=== PATIENT | male | born 1980 | race Caucasian/White ===

== ENCOUNTER 2023-12-20 12:38 | Outpatient (REF) | payer OTHER, SELFPAY ==
--- NOTE | ~2023-12-20 | XR_ITS ---
Examination: XR pre mri screening Indication: R/O RETAINED METAL TO EYE PRE MRI Comparison: No pertinent prior studies are currently available for comparison. Technique: 3 views of the orbits were obtained for pre-MRI screening. Findings: No radiopaque foreign bodies seen overlying the orbits. Visualized sinuses are well aerated and unremarkable. No acute bony abnormality. XR/XR pre mri screening Impression: No radiopaque foreign body seen overlying the orbits.
--- NOTE | ~2023-12-20 | MR_ITS ---
EXAMINATION: MR SHOULDER WITHOUT CONTRAST, LEFT CLINICAL INFORMATION: Pain. Patient reports dislocation 10 years prior. COMPARISON: None available. TECHNIQUE: MRI of the shoulder without contrast was performed on a high-field scanner. FINDINGS: ROTATOR CUFF: There is a small irregular focus of increased intrasubstance signal at the insertion of the conjoined portion of the supraspinatus and infraspinatus tendons compatible with a small intrasubstance partial tear. See coronal image 9 series 6 and sagittal image 4 series 3. This extends over approximately 4 mm transverse and 3 mm AP. No transverse defect or tendon retraction. The remaining portions of the tendons are normal. The respective muscles are normal. Teres minor: Normal. Subscapularis: This some minimal intrasubstance increased signal at the insertion of the tendon compatible with tendinosis or minimal intrasubstance partial tearing. See axial image 12 series 2. No transverse defect or tendon retraction. Muscle normal. BICEPS: Normal. CORACOACROMIAL ARCH: The undersurface of the acromion is curved with no subacromial spur. There is mild arthrosis of the acromioclavicular joint with subchondral cysts and small marginal osteophytes. BURSA: Normal. LABRUM/CAPSULE: Normal. GLENOHUMERAL JOINT/MARROW: There is focal cartilage heterogeneity along the inferior aspect of the glenoid. Humeral head cartilage normal. Overall minimal arthrosis. There is an oval-shaped low signal focus in the subscapularis recess just anterior to the base of the coracoid and adjacent to the anterior surface of the glenoid. This measures 5 x 3 x 7 mm. This has the appearance of a loose body. MR/MR shoulder LT wo con IMPRESSION: 1. Small intrasubstance partial tear at the insertion of the conjoined portion of the supraspinatus and infraspinatus tendons. 2. Minimal tendinosis or intrasubstance partial tearing at the insertion of the subscapularis. 3. Mild arthrosis of the acromioclavicular joint. 4. Minimal arthrosis of the glenohumeral joint. 5. Probable loose body in the medial aspect of the subscapularis recess.
== END 2023-12-20 12:39 | disposition home or self-care (01) ==
LOC: HO.MRI 12:38
PROVIDERS: Visit Provider Family Medicine
DX: M25.512 Pain in left shoulder (principal)
CPT/HCPCS: 73221

== ENCOUNTER 2024-02-01 08:35 | Outpatient (REF) | payer OTHER, SELFPAY ==
--- NOTE | ~2024-02-01 | XR_ITS ---
EXAMINATION: XR SHOULDER, LEFT CLINICAL INFORMATION: Pain left shoulder COMPARISON: MRI left shoulder November 2023 TECHNIQUE: AP external rotation, Grashey, scapular Y, and axillary views of the left shoulder. FINDINGS: There is mild arthrosis of the acromioclavicular joint unchanged. Glenohumeral joint normal. Surrounding bone and soft tissues unremarkable. XR/XR shoulder LT min 2V IMPRESSION: Mild arthrosis of the acromioclavicular joint.
== END 2024-02-01 08:36 | disposition home or self-care (01) ==
LOC: HO.HOSX 08:35
PROVIDERS: Visit Provider Orthopaedic Surgery
DX: M25.512 Pain in left shoulder (principal)
CPT/HCPCS: 73030

== ENCOUNTER 2024-02-01 08:45 | Outpatient (AMB) | payer OTHER, SELFPAY ==
--- NOTE | 2024-02-01 08:52 | MHC.OFFVIS ---
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 MRI done at [facility]. Hx of left shoulder dislocation while snowboarding roughly 10 years ago. Increased pain with above the head, strenuous pushing motions and behind the back ROM. Feels weakness in his shoulder, thinks PT made it worse, says it feels like it will dislocate after a work out or any strenuous activity. Denies numbness and tingling. Allergies No Known Allergies Allergy (Verified 02/01/24 09:49) HPI HPI [employer]EVELOP[employer] SPECIALIST left shoulder pain, no recent injuries/falls: Details: Kurt is a 43 year old right hand dominant male who presents today as a new patient with complaints of left shoulder pain. MRI done at [facility]. Hx of left shoulder dislocation while snowboarding roughly 10 years ago. Increased pain with above the head, strenuous pushing motions and behind the back ROM. Feels weakness in his shoulder, thinks PT made it worse, says it feels like it will dislocate after a work out or any strenuous activity. Denies numbness and tingling. 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 Neg EC Mild pain with BIANKA Neg EC Results Reviewed Results Reviewed: I personally reviewed the MR images. 1. Small intrasubstance partial tear at the insertion of the conjoined portion of the supraspinatus and infraspinatus tendons. 2. Minimal tendinosis or intrasubstance partial tearing at the insertion of the subscapularis. 3. Mild arthrosis of the acromioclavicular joint. 4. Minimal arthrosis of the glenohumeral joint. 5. Probable loose body in the medial aspect of the subscapularis recess. Assessment & Plan Assessment & Plan (1) Instability of left shoulder joint: Code(s): M25.312 - Other instability, left shoulder Category: Medical Plan: This is a 43-year-old gentleman with a history of left shoulder dislocation and MRI radiographic evidence a old bony Bankart. I reviewed this with him and discussed options. This is not an issue of a loose body but rather of instability. If there is recurrent and painful instability of the bothers him I recommend capsular plication. I discussed surgical and nonsurgical treatment options including physical therapy and capsular plication. He will consider his options and let me know. At this point in time he is not interested in intervention. Orders: Orders XR shoulder LT min 2V 02/01/24 M25.519 - Pain in unspecified shoulder Coding Level of Care Code New Pt Level 4 (44657) Diagnoses Instability of left shoulder joint M25.312
[2024-02-01 09:48] VITALS: BMI 27.3
== END 2024-02-01 10:16 | disposition home or self-care (01) ==
PROVIDERS: Visit Provider Orthopaedic Surgery
DX: M25.312 Other instability, left shoulder (principal)
CPT/HCPCS: 99203

== ENCOUNTER 2024-05-23 11:17 | Outpatient (AMB) | payer OTHER, SELFPAY ==
[2024-05-23 11:19] VITALS: BMI 27.3
--- NOTE | 2024-05-23 11:19 | MHC.OFFVIS ---
Vital Signs 05/23/24 11:19 Height 5 ft 10 in Weight 190 lb BMI 27.3 Intake Visit Reasons: Preop LT capsular plication 05/29/24 NE Intake Note: Kurt is a 43 year old male who presents today for a pre operative visit, he is booked for a Left Capsular Plication 05/29/2024 Allergies No Known Allergies Allergy (Verified 02/01/24 09:49) HPI HPI Preop LT capsular plication 05/29/24 NE: Details: Kurt is a 43 year old male who presents today for a pre operative visit, he is booked for a Left Capsular Plication 05/29/2024. He is a right hand dominant male who presents today as a new patient with complaints of left shoulder pain. MRI done at [facility] [place]. Hx of left shoulder dislocation while snowboarding roughly 10 years ago. Increased pain with above the head, strenuous pushing motions and behind the back ROM. Feels weakness in his shoulder, thinks PT made it worse, says it feels like it will dislocate after a work out or any strenuous activity. Denies numbness and tingling. 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 Neg EC Mild pain with BIANKA Neg EC Results Reviewed Results Reviewed: I personally reviewed the MR images. 1. Small intrasubstance partial tear at the insertion of the conjoined portion of the supraspinatus and infraspinatus tendons. 2. Minimal tendinosis or intrasubstance partial tearing at the insertion of the subscapularis. 3. Mild arthrosis of the acromioclavicular joint. 4. Minimal arthrosis of the glenohumeral joint. 5. Probable loose body in the medial aspect of the subscapularis recess. Assessment & Plan Assessment & Plan (1) Instability of left shoulder joint: Code(s): M25.312 - Other instability, left shoulder Category: Medical Plan: This is a 42 with left shoulder instability pain. He has been scheduled For left shoulder arthroscopy. We discussed surgery including the risks, benefits and alternatives. I explained the possibility of damage to biceps tendon and rotator cuff and the necessary adjustments will be made intraoperatively should there be any additional findings. Based on the MRI I suspect that we will be doing capsular plication, possible labral repair and possible removal of loose body. Coding Level of Care Code Est Pt Level 4 (18623) Diagnoses Instability of left shoulder joint M25.312
== END 2024-05-23 15:30 | disposition home or self-care (01) ==
LOC: HO.HOS 11:18
PROVIDERS: PCP Family Medicine; Visit Provider Orthopaedic Surgery
DX: M25.312 Other instability, left shoulder (principal)
CPT/HCPCS: 99214

== ENCOUNTER → 2024-05-23 11:17 | Outpatient (BNVA) | payer OTHER, SELFPAY | PROVIDERS: PCP Family Medicine; Visit Provider Orthopaedic Surgery ==

== ENCOUNTER 2024-05-29 08:33 | Day surgery (SDC) | payer OTHER, SELFPAY ==
[2024-05-27 11:19] VITALS: BMI 27.3
--- NOTE | 2024-05-28 09:32 | HO.ANESPROP2 ---
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
[2024-05-29] VITALS (12 sets, daily range): BP systolic 81–136; BP diastolic 45–86; PULSE 46–101; RESP 16; TEMP 36.1–36.6; O2SAT 94–97; BMI 30.7
--- NOTE | 2024-05-29 09:41 | PC.NURSE ---
AFTER IV INSERTION PATIENT FELT DIZZY. HEART RATE AND BP DROPPED. FLUIDS ARE WIDE OPEN. SUPINE, TRENDELENBURG. COOL CLOTH TO FOREHEAD. NO SYNCOPE. PATIENT STATES THIS HAPPENS WHEN HE GETS BLOOD DRAW.
[2024-05-29] MEDS: Lactated Ringers 1,000 ML 100 ML IVCONT (09:45)
--- NOTE | 2024-05-29 09:45 | PC.NURSE ---
MD BILLINGS BY BEDSIDE EVALUATING PATIENT.
--- NOTE | 2024-05-29 10:08 | PC.NURSE ---
PATIENT NO LONGER DIZZY FEELING BETTER.
--- NOTE | 2024-05-29 10:11 | MHC.SHP ---
Pre-Procedural Eval Section A - 24 Hr Update-Section A only Date of Service: 05/29/24 The patient is an INPATIENT: No Changes since office visit: No Cold of Flu in the past 2 weeks, No New Medical Problems, No Changes in Medication and No Patient answered all questions The patient has been examined within 24 hours of the surgical procedure. The History & Physical has been completed within 30 days and I have reviewed it.: Yes Section B - Complete if H&P > 30 days Chief Complaint: Other instability, left shoulder Allergies: Allergies Allergy/AdvReac Type Severity Reaction Status Date / Time No Known Allergies Allergy Verified 02/01/24 09:49 Plan I have reviewed the history and physical and performed a pertinent physical examination on my patient. No changes have occurred unless specified. Time Spent With Patient Time: Total time managing care of this patient today ____ minutes.
--- NOTE | 2024-05-29 13:33 | W.PM.OPN ---
Operative Note Operative Note Date of Service: 05/29/24 Narrative: Date of Service: 05/29/24 Pre-op diagnosis: Left shoulder instability Post-op diagnosis: same Procedure: Bankhart repair and chondroplasty left shoulder Implants: [employer] Micro-raptor x 2 Surgeon: Rakesh Sullivan MD Anesthesia: GETA and regional Was an Hematology Supervisor used for this Procedure?: Yes Hematology Supervisor: Jory Edmondson Estimated blood loss (mL): 10 IV fluids (mL): 750 Pathology: none sent Condition: stable Disposition: PACU Procedure in detail: Patient was brought to the operating room and placed the the beach chair position. All bony prominences were well padded and the limb was prepped and draped in standard sterile fashion. A time out was called to identify proper site, proper procedure and proper surgeon. IV antibiotics per weight were administered. I began by making a posterolateral stab incision with a 15 blade. A blunt trochar was placed into the glenohumeral joint and I insufflated the joint with saline and a 30 degree arthroscope was placed. I established an outside- in anterior portal just distal to the biceps tendon. I then began my inspection of the glenohumeral joint. There was G3 changes of te fercho-inferior glenoid with labral degeneration from 6 to 9 o:clock. The subscapularis was intact and there was no under-surface RTC tearing. There was mild fraying of the biceps with associated mild degenerative tearing of the labrum superiorly. The anterior labrum detached from the glenoid and a postive drive through sign. I debrided the labrum then debrided the anterior glenoid neck and passed two sutures through the fercho-inferior capsule and labrum with a [place] suture passer at the 7 o'clock position. I drilled and then inserted a 2.7 mm micro-raptor at the anterior glenoid rim and tightened the fercho-inferior capsule and labrum creating a nice bumper effect and bringing the IGHL up. I then repeated this process at 8/d 9 o'clock position. I was satisfied with the plication and the labral repair. There was no longer a + drive though. I performed a chondroplasty of the fercho-inferior glenoid. I then removed all instrumentation and took my final pictures. Portals were closed with nylon. Patient was placed in an abduction sling, extubated and brought to the recovery room in stable condition. There were no known complications.
== END 2024-05-29 14:06 | disposition home or self-care (01) ==
LOC: HO.SSS 08:34
PROVIDERS: Visit Provider Orthopaedic Surgery
PROC: (CPT 29805; principal; 2024-05-29 12:00)
DX: M25.312 Other instability, left shoulder (principal); M25.512 Pain in left shoulder; Z87.39 Personal history of other diseases of the musculoskeletal system and connective tissue
CPT/HCPCS: 29806; C1713; J0131; J0171; J0665; J0690; J1100; J1885; J2003; J2250; J2405; J2704; J3010

== ENCOUNTER → 2024-05-29 08:33 | Outpatient (BNV) | payer OTHER, SELFPAY | PROVIDERS: Visit Provider Orthopaedic Surgery | DX: M25.312 Other instability, left shoulder (principal) | CPT/HCPCS: 29806 ==

== ENCOUNTER 2024-06-06 14:03 | Outpatient (AMB) | payer OTHER, SELFPAY ==
--- NOTE | 2024-06-06 14:05 | A.OFFVIS_ITS ---
Intake Visit Reasons: PO LT capsular plication 05/29/24 NE Intake Note: Kurt is a 43 year old male who presents today for a post op appointment s/p LT capsular plication 05/29/24 NE. Patient reports he is doing well. He states having some mild pain near the incision site. Allergies No Known Allergies Allergy (Verified 06/06/24 14:08) HPI HPI PO LT capsular plication 05/29/24 NE: Details: 43-year-old right hand dominant male who presents in the office today 8 days status post left shoulder chondroplasty, capsular repair and bankhart repair, which was performed on 05/29/[address] Sullivan. While in the office today, the patient is overall doing well. He mentions having mild pain near the incision site. He presents wearing the sling as appropriate. 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 Sutures are intact. No surrounding erythema or drainage. No signs of infection. Forward flexion and abduction to 45 degrees. External rotation to neutral. NVI. Assessment & Plan Assessment & Plan (1) Instability of left shoulder joint: Code(s): M25.312 - Other instability, left shoulder Category: Medical Plan Mr. Donis is a 43-year-old right hand dominant male who presents in the office today 8 days status post left shoulder chondroplasty, capsular repair and bankhart repair, which was performed on 05/29/[address] Sullivan. While in the office today, the patient is overall doing well. He mentions having mild pain near the incision site. He presents wearing the sling appropriately. Sutures were removed and steri-strips were applied. The patient would like to attend an outside facility at [facility] in [place] which is closer to his home. Therefore, The patient was provided with a paper copy of the physical therapy prescription to go to the facility he wished to attend. Follow- up will be with Dr. Sullivan in 4 weeks, or sooner if needed. Orders: Orders PT Evaluation and Treatment Today M25.312 - Other instability, left shoulder Patient Instructions: Scribed by Madeleine Lutz claim review medical director, for Jory Edmondson PA-C on 06/06/24 at 2:25 pm EST. Coding Level of Care Code Global (58231) Diagnoses Instability of left shoulder joint M25.312
== END 2024-06-06 14:25 | disposition home or self-care (01) ==
PROVIDERS: PCP Family Medicine; Visit Provider Physician Assistant
DX: M25.312 Other instability, left shoulder (principal)
CPT/HCPCS: 99024

== ENCOUNTER 2024-07-04 12:55 | Outpatient (AMB) | payer OTHER, SELFPAY ==
--- NOTE | 2024-07-04 12:57 | A.OFFVIS_ITS ---
Vital Signs 07/04/24 13:00 Height 5 ft 10 in Weight 204 lb BMI 29.3 Intake Visit Reasons: PO LT capsular plication 05/29/24 NE Intake Note: Kurt is a 43 year old right hand dominant male who presents today for a post op appointment s/p LT Bankhart repair and chondroplasty left shoulder 05/29/24. Patient reports that he is doing well with no current concerns. Reports no pain. Allergies No Known Allergies Allergy (Verified 06/06/24 14:08) HPI HPI PO LT capsular plication 05/29/24 NE: Details: Kurt is a 43 year old right hand dominant male who presents today for a post op appointment s/p LT Bankhart repair and chondroplasty left shoulder 05/29/24. Patient reports that he is doing well with no current concerns. Reports no pain. 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 Portals clean dry and intact. Assessment & Plan Assessment & Plan (1) Instability of left shoulder joint: Code(s): M25.312 - Other instability, left shoulder Category: Medical Plan: Status post Bankart repair and capsular plication left shoulder. He is doing very well. 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 I reviewed this with him and my recommendations for activity modifications with respect to lifting weights. Continue physical therapy follow up 6 weeks. Coding Level of Care Code Global (60613) Diagnoses Instability of left shoulder joint M25.312
--- OUTSIDE RECORDS SUMMARY | 2024-07-04 12:57 | XMS_ITS ---
[facility] Name [facility] Organization Unknown History of Medication Use Medication Directions Dispensed Refills Start Date End Date Stat Clobetasol Propionate 0.05% External Cream Clobetasol Propionate 0.05% External Cream QTY: 60 Days: 30 Refills: 0 Written: 06/07/24 Patient Instructions: 06/19/2024 07/23/9999 active Meloxicam 15 MG Oral Tablet Meloxicam 15 MG Oral Tablet QTY: 30 tablet Days: 30 Refills: 2 Written: 06/04/24 Patient Instructions: 1 tab daily with food as needed for joint pains 06/06/2024 07/23/9999 active Nasonex 50 MCG/ACT NA SUSP Nasonex 50 MCG/ACT Nasal Suspension QTY: 1 not specified Days: 0 Refills: 0 Written: 04/24/07 Patient Instructions: sample 02/26/2023 completed Cipro HC 0.2-1% OT SUSP Cipro HC 0.2-1% Otic Suspension QTY: 1 not specified Days: 0 Refills: 0 Written: 02/25/03 Patient Instructions: 3 gtts in L ear bid x 7 days 02/26/2023 completed lidocaine (XYLOCAINE) 2 % solution Take 5 mL by mouth 4 (four) times a day as needed for mild pain. Gargle and spit out. 08/27/2022 active Naprosyn 500 MG OR TABS Naprosyn 500 MG Oral Tablet QTY: 30 not specified Days: 0 Refills: 0 Written: 10/24/08 Patient Instructions: 02/26/2023 completed Zithromax Z-Lucho 250 MG OR TABS Zithromax Z-Lucho 250 MG Oral Tablet QTY: 1 pack Days: 5 Refills: 0 Written: 09/24/14 Patient Instructions: 02/26/2023 completed Econazole Nitrate 1% External Cream Econazole Nitrate 1% External Cream QTY: 85 gram Days: 30 Refills: 0 Written: 02/24/23 Patient Instructions: apply to affected feet BID 02/26/2023 active predniSONE 20 MG Oral Tablet predniSONE 20 MG Oral Tablet QTY: 10 tablet Days: 5 Refills: 0 Written: 02/24/23 Patient Instructions: 2 once a day 02/26/2023 active benzonatate (TESSALON) 200 MG capsule Take 1 capsule (200 mg total) by mouth 3 (three) times a day as needed for cough. 08/27/2022 active fluticasone (FloNASE) 50 mcg/spray nasal spray 1 spray into each nostril daily. 08/27/2022 active Augmentin 875-125 MG OR TABS Augmentin 875-125 MG Oral Tablet QTY: 20 Days: 10 Refills: 0 Written: 02/09/12 Patient Instructions: 02/26/2023 completed Ceftin 500 MG OR TABS Ceftin 500 MG Oral Tablet QTY: 20 not specified Days: 0 Refills: 0 Written: 12/03/02 Patient Instructions: 02/26/2023 completed [manual] Kenalog 0.5% Crm 20 Gm MISC [manual] Kenalog 0.5% Crm 20 Gm Miscellaneous QTY: 0 not specified Days: 0 Refills: 2 Written: 01/02/08 Patient Instructions: to affected skin x 3 weeks as needed 02/26/2023 completed Problems Problem Status Onset Date Problem Type Date of Resolution Source Diverticulitis of colon (disorder) active 2020-09-11 ProblemAct [facility] Sore throat active EncounterDiagnosisAct [facility] Viral upper respiratory tract infection with cough [facility] Hyperlipidemia active 2008-09-26 ProblemAct [facility] Immunizations Vaccine Date Source Lot Number Status DTP 06/22/1984 [facility] completed *Td 03/16/1998 [facility] completed Hep B 03/16/1998 [facility] completed DTP 01/01/1988 [facility] completed DTP 07/27/1983 [facility] completed OPV 03/16/1983 [facility] completed Tdap 09/26/2008 [facility] completed Hep B 05/02/2001 [facility] completed DTP 12/12/1983 [facility] completed Meningococcus 08/14/2003 [facility] completed OPV 01/01/1988 [facility] completed DTP 03/16/1983 [facility] completed OPV 06/22/1984 [facility] completed Influenza (live intranasal) 07/31/2003 [facility] completed *MFP (Boostrix) Tdap 09/11/2020 [facility] [id number] comp leted OPV 07/27/1983 [facility] completed *CT MMR <19 yrs old 12/28/1992 [facility] compl eted Hep B 04/14/2000 [facility] completed *Td 01/01/1988 [facility] completed *CT MMR <19 yrs old 05/22/1984 [facility] compl eted
[2024-07-04 13:00] VITALS: BMI 29.3
== END 2024-07-04 13:35 | disposition home or self-care (01) ==
PROVIDERS: PCP Family Medicine; Visit Provider Orthopaedic Surgery
DX: M25.312 Other instability, left shoulder (principal)
CPT/HCPCS: 99024

== ENCOUNTER → 2024-07-04 12:55 | Outpatient (BNVA) | payer OTHER, SELFPAY | PROVIDERS: PCP Family Medicine; Visit Provider Orthopaedic Surgery ==